=== PATIENT | female | born 1995 | race Native Hawaiian/Other Pacific Islander ===

== ENCOUNTER 2020-02-08 05:31 | Day surgery (SDC) | payer OTHER, SELFPAY ==
[~2020-02-08] VITALS: Ht 162.6 cm; Wt 86.2 kg
[2020-02-08 06:07] LABS: BASOPHILS # (AUTO) 0.1 K/uL (0.00-0.22); BASOPHILS % (AUTO) 1.2 % (0.0-2.0); EOSINOPHILS # (AUTO) 0.3 K/uL (0-0.4); EOSINOPHILS % (AUTO) 2.8 % (0.0-4.0); HEMATOCRIT 43.9 % (36-48); HEMOGLOBIN 14.7 g/dL (12.0-16.0); LYMPHOCYTES # (AUTO) 3.3 K/uL (2.5-16.5); LYMPHOCYTES % (AUTO) 37.3 % (20.5-51.1); MEAN CORPUSCULAR HEMOGLOBIN 30 pg (27-31); MEAN CORPUSCULAR HGB CONC 34 g/dL (33-37); MONOCYTES # (AUTO) 0.6 K/uL (0.8-1.0); MONOCYTES % (AUTO) 6.9 % (1.7-9.3); NEUTROPHILS # (AUTO) 4.6 K/uL (1.8-7.7); NEUTROPHILS % (AUTO) 51.8 % (42.2-75.2); PLATELET COUNT (AUTO) 266 K/uL (140-450); RED BLOOD CELL COUNT(AUTO) 4.88 MIL/uL (4.20-5.40); RED CELL DISTRIBUTION WIDTH 13.4 % (11.6-13.7); WHITE BLOOD COUNT (AUTO) 8.9 K/uL (4.8-10.8)
[2020-02-08 07:10] LABS: ALBUMIN 3.9 g/dL (3.4-5.0); ANION GAP 13.6 (8-16); CARBON DIOXIDE 22.7 mmol/L (21-32); CREATININE 1.2 mg/dL (0.6-1.3); POTASSIUM 4.3 mmol/L (3.5-5.1); TOTAL BILIRUBIN 0.9 mg/dL (0.0-1.0)
[2020-02-08] MEDS ORDERED: MIDAZOLAM 2 MG/2 ML VIAL ONE (07:20)
[2020-02-08] MEDS ORDERED: fentaNYL citrate 0.05 MG/ML VIAL ONE (07:20)
[2020-02-08] MEDS ORDERED: LACTATED RINGERS 1,000 ML IV SCH (08:05)
[2020-02-08] MEDS ORDERED: diphenhydrAMINE 50 MG/ML VIAL IVP PRN (08:05)
[2020-02-08] MEDS ORDERED: ONDANSETRON 4 MG/2 ML VIAL IVP PRN (08:05)
== END 2020-02-08 09:10 | disposition home or self-care (01) ==
LOC: MOR 05:31 → MMU 05:32 → MOR 09:10
PROVIDERS: ATTEND Internal Medicine Gastroenterology
DX: K62.5 Hemorrhage of anus and rectum (principal); K58.2 Mixed irritable bowel syndrome; F43.10 Post-traumatic stress disorder, unspecified; Z88.0 Allergy status to penicillin; E66.9 Obesity, unspecified; Z68.32 Body mass index [BMI] 32.0-32.9, adult; K59.00 Constipation, unspecified; F06.4 Anxiety disorder due to known physiological condition; Z79.899 Other long term (current) drug therapy; Z20.828 Contact with and (suspected) exposure to other viral communicable diseases
CPT/HCPCS: 36415; 71045; 80053; 81025; 85025; 88305; J2250; J3010; J7120; U0003